=== PATIENT | male | born 1990 | race Caucasian/White ===

== ENCOUNTER 2016-06-14 08:22 | Emergency (ER) | payer BC ==
--- NOTE | 2016-06-14 08:48 | EDM.PDOC ---
ED HISTORY OF PRESENT ILLNESS - General Chief Complaint: Cardiovascular Problem Stated Complaint: RAPID HEARTBEAT Time Seen by Provider: 06/14/16 08:47 Source of Information: Reports: Patient History Limitations: Reports: No limitations - History of Present Illness INITIAL COMMENTS - FREE TEXT/NARRATIVE: 25-year-old male attends the ED with a reports a sudden onset of palpitations and rapid irregular heartbeat which is well aware of in his chest. Associated mild dizziness and lightheadedness. No real short it resolved prior to coming to the ED. He drinks about 6 beers a night. He drinks a pot of coffee per day but stopped smoking 3 months ago. Denies using any stimulant drinks or street drugs such as methamphetamines he now feels pretty well back to normal. He's not 8 any breakfast or drank much yet today.ness of breath or chest pain or discomfort. States he's had this off and on in the past but never lasted this long. Today it lasted close to 45 minutes. Symptom Onset Date: 06/14/16 Symptom Onset Time: 07:30 Timing/Duration: Reports: Minutes: Severity: moderate (Lasted about 45 minutes.) Location, General: Reports: chest, other (Associated lightheadedness dizzy feeling.) Quality: Reports: Same as previous episode (Except this one lasted way longer than before.) Improves with: Reports: None Worsens with: Reports: None Context, General: Reports: Other. Denies: Activity, Exercise, Lifting, Sick contact, Trauma Associated Symptoms (General): Reports: weakness, other (Dizziness lightheadedness.). Denies: no other symptoms, confusion, chest pain, cough ( Occurred while he was at work this morning.), cough w sputum, diaphoresis, fever /chills, headaches, loss of appetite, nausea/vomiting, rash, seizure, shortness of breath, syncope Treatments [employer]: Reports: Other (see below) (9) - Related Data Allergies/ADRs: Allergies Allergy/AdvReac Type Severity Reaction Status Date / Time Sulfa (Sulfonamide Allergy Rash Verified 06/14/16 08:32 Antibiotics) Home Meds: Home Meds Levothyroxine [Synthroid] 100 mcg PO ACBREAKFAST #30 tablet 06/14/16 [Rx] Past Medical History - Past Health History Medical/Surgical History: Denies Medical/Surgical History Social & Family History - Tobacco Use Smoking Status *Q: Former Smoker Years of Tobacco use: 6 Packs/Tins Daily: 1 Used Tobacco, but Quit: Yes Month Tobacco Last Used: mar - Alcohol Use Days Per Week of Alcohol Use: 7 Number of Drinks Per Day: 6 Total Drinks Per Week: 42 - Recreational Drug Use Recreational Drug Use: No - Living Situation & Occupation Living situation: Reports: single Occupation: employed [employer] GENERAL - Review of Systems Review Of Systems: See Below Constitutional: Reports: night sweats HEENT: Reports: No symptoms Respiratory: Reports: No Symptoms Cardiovascular: Reports: Palpitations Endocrine: Reports: no symptoms GI/Abdominal: Reports: No symptoms : Reports: no symptoms Musculoskeletal: Reports: no symptoms Skin: Reports: no symptoms Neurological: Reports: No Symptoms Psychiatric: Reports: No symptoms Hematologic/Lymphatic: Reports: no symptoms Immunologic: Reports: no symptoms ED EXAM, GENERAL - Physical Exam Exam: See Below Exam Limited By: No limitations General Appearance: alert, WD/WN, no apparent distress Eye Exam: bilateral eye: normal inspection Ears: normal TMs Nose: normal inspection, normal mucosa Throat/Mouth: Normal inspection, Normal lips, Normal teeth, Normal oropharynx Head: atraumatic, normocephalic Neck: normal inspection, supple, non-tender, full range of motion Respiratory/Chest: no respiratory distress, lungs clear, normal breath sounds, no accessory muscle use Cardiovascular: normal peripheral pulses, no edema (102 per minute.), no gallop , no murmur, no rub, tachycardia (Sinus rhythm on the monitor.) Peripheral Pulses: 3+: carotid (L), carotid (R), posterior tibial (L), posterior tibial (R), dorsalis pedis (L), dorsalis pedis (R) GI/Abdominal: normal bowel sounds, soft, non tender, no organomegaly, no distention, no abnormal bruit Back Exam: normal inspection, full range of motion Extremities: normal inspection, normal range of motion, non-tender, normal capillary refill Neurological: alert, oriented, CN II-XII intact, normal cognition, normal gait, normal reflexes, no motor/sensory deficits Psychiatric: normal affect, normal mood Skin Exam: Warm, Dry, Intact, Normal color, No rash EKG INTERPRETATION EKG Date: 06/14/16 Time: 08:45 Rhythm: other (Sinus tachycardia) Rate (beats/min): 102 [place]: normal P-wave: enlarged (Consider left atrial hypertrophy.) QRS: other (His left ventricular hypertrophy pattern with strain. This may be normal for his age and clearly his stature is he is a very thin chest. There are Q waves in leads 23 and aVF which are less than 25% of the QRS complex and are considered insignificant.) ST-T: normal QT: normal Course - Vital Signs Last Recorded V/S: Last Vital Signs Temp 36.9 C 06/14/16 08:27 Pulse Resp 18 06/14/16 08:27 BP Pulse Ox - Orders/Labs/Meds Orders: Active Orders 24 hr Category Date Time Status EKG 12 Lead [EKG Documentation Completion] [RC] STAT Care 06/14/16 08:35 Active Labs: Laboratory Tests 06/14/16 06/14/16 06/14/16 Range/Units 09:10 09:10 09:10 WBC 4.60 (4.23-9.07) K/mm3 RBC 4.67 (4.63-6.08) M/mm3 Hgb 14.8 (13.7-17.5) gm/L Hct 42.2 (40.1-51.0) % MCV 90.4 (79.0-92.2) fl MCH 31.7 (25.7-32.2) pg MCHC 35.1 (32.2-35.5) g/dl RDW Std Deviation 38.6 (35.1-43.9) fL Plt Count 192 (163-337) K/mm3 MPV 10.6 (9.4-12.3) fl Neutrophils % (Manual) 56 (40-60) % Band Neutrophils % 1 (0-10) % Lymphocytes % (Manual) 36 (20-40) % Atypical Lymphs % 0 % Monocytes % (Manual) 5 (2-10) % Eosinophils % (Manual) 1 (0.8-7.0) % Basophils % (Manual) 1 (0.2-1.2) Platelet Estimate Adequate RBC Morph Comment Normal Sodium 139 (136-145) mEq/L Potassium 3.0 L (3.5-5.1) mEq/L Chloride 103 (98-107) mEq/L Carbon Dioxide 23 (21-32) mEq/L Anion Gap 16.0 H (5-15) BUN 13 (7-18) mg/dL Creatinine 1.1 (0.7-1.3) mg/dL Est Cr Clr Drug Dosing 92.21 mL/min Estimated GFR (MDRD) > 60 (>60) mL/min BUN/Creatinine Ratio 11.8 L (14-18) Glucose 125 H (74-106) mg/dL Calcium 8.9 (8.5-10.1) mg/dL Magnesium 2.2 (1.8-2.4) mg/dl Total Bilirubin 0.6 (0.2-1.0) mg/dL AST 17 (15-37) U/L ALT 23 (16-63) U/L Alkaline Phosphatase 89 (46-116) U/L Troponin I < 0.017 (0.00-0.056) ng/mL B-Natriuretic Peptide < 15 (0-100) pg/mL Total Protein 7.9 (6.4-8.2) g/dl Albumin 4.4 (3.4-5.0) g/dl Globulin 3.5 gm/dL Albumin/Globulin Ratio 1.3 (1-2) TSH 3rd Generation 5.922 H (0.358-3.74) uIU/mL Meds: Medications Discontinued Medications Generic Name Dose Route Start Last Admin Trade Name Freq PRN Reason Stop Dose Admin Potassium Chloride 20 meq 06/14/16 10:24 06/14/16 10:40 Klor-Con M20 PO 06/14/16 10:25 20 meq ONETIME ONE Administration - Radiology Interpretation Free Text/Narrative:: 25-year-old male presents the ED with palpitations i.e. a tachyarrhythmia. He states he's had these several times in the past for this is the longest it ever lasted IE close to 45 minutes. Associated dizziness and lightheadedness. He has feeling better when he came to the ED with a heart rate of 11 per minute. No signs of an accessory pathway are dull to wave to suggest accessory pathway. His ECG suggests cardiomegaly but he is a thin chest. One view chest x-ray to be obtained with routine labs to include a serum magnesium and a TSH.. - Re-Assessments/Exams Free Text/Narrative Re-Assessment/Exam: 06/14/16 09:44 one view chest x-ray is within normal limits showing mildly hyperinflated lung saleh but normal-sized heart and mediastinum. Departure - Departure Time of Disposition: 10:25 Disposition: Home, Self-Care 01 Condition: fair Clinical Impression: Intermittent palpitations, Hypokalemia Hypothyroidism Qualifiers: Hypothyroidism type: acquired Qualified Code(s): E03.9 - Hypothyroidism, unspecified Prescriptions: Levothyroxine [Synthroid] 100 mcg PO ACBREAKFAST #30 tablet Instructions: Hypokalemia, Hypothyroidism, Palpitations, [id number] Referrals: PCP,None [Primary Care Provider] - Forms: ED Department Discharge Additional Instructions: Evaluation in the emergency department today in regards to development of tachyarrhythmia which means past heart beat this morning that lasted a good 45 minutes. You have appreciated previous similar episodes although they've never lasted quite as long as he did today. Lab work carried out revealed a low serum potassium level at 3.0. Normal is 3.5-5. The potassium can make the heart irritable and could possibly be a cause of the rapid heart rate today. Second finding was that you are hypothyroid in terms that your thyroid gland which is a gland that lives in your neck in secretes a daily dose of thyroid hormone that every tissue in your body requires is not able to produce enough thyroid hormone on its own. This usually occurs after viral infections attack the gland and over time we can set so that it cannot keep up with the needs for the entire body. You therefore need a thyroid supplement and I would suggest starting 100 mcg of Synthroid or levothyroxine once daily. You're need repeat blood work in 6-8 weeks' time to check to see if the dose is adequate or too much. He need a blood test called a serum TSH. Potassium will come up once you' re eating again. He does go lower after drinking alcohol. Chest x-ray was normal and no other abnormality is were noted in your lab work. If you do not have a followup Dr. suggest Dr. Alfaro. The number is [phone] to arrange an appointment in 6-8 weeks' time. [place]. - My Orders Last 24 Hours: My Active Orders 06/14/16 08:35 EKG 12 Lead [EKG Documentation Completion] [RC] STAT - Assessment/Plan Last 24 Hours: My Active Orders 06/14/16 08:35 EKG 12 Lead [EKG Documentation Completion] [RC] STAT
--- NOTE | 2016-06-14 09:41 | CR ---
Chest: Portable view of the chest was obtained. Comparison: No previous study. Heart size and mediastinum are within normal limits. Lungs are clear. Bony structures are unremarkable for the patient's age. Impression: 1. Nothing acute is identified on portable chest x-ray. Diagnostic code #1
[2016-06-14] MEDS ORDERED: Potassium Chloride 20 MEQ Tab.ER PO ONE (10:24)
== END 2016-06-14 11:03 | disposition home or self-care (01) ==
LOC: JD.ED 08:22
DX: R00.2 Palpitations (principal); E87.6 Hypokalemia; E03.9 Hypothyroidism, unspecified; Z88.2 Allergy status to sulfonamides; Z87.891 Personal history of nicotine dependence
CPT/HCPCS: 36415; 71010; 80053; 83735; 83880; 84439; 84443; 84481; 84484; 85025; 86376; 93005; 99285; A9270; 99284